=== PATIENT | female | born 1995 | race Caucasian/White ===

== ENCOUNTER 2024-12-31 13:58 | Emergency (ER) | payer SELFPAY ==
[2024-12-31 13:59] VITALS: BP 132/80; PULSE 79; RESP 16; TEMP 36.9; O2SAT 99
[2024-12-31 16:45] VITALS: BP 129/82; PULSE 77; RESP 15; O2SAT 100
--- NOTE | 2024-12-31 16:51 | ED_ITS ---
HPI - Anxiety General Chief Complaint: Anxiety <Luana LeeNory Melo, SENIOR SALES ASSISTANT - Last Filed: 12/31/24 16:54> Stated Complaint: anxiety <Luana LeeNory Melo SENIOR SALES ASSISTANT - Last Filed: 12/31/24 16:54> Time Seen by Provider: 12/31/24 16:40 <Luana Jason Melo SENIOR SALES ASSISTANT - Last Filed: 12/31/24 16:54> Focused HPI: Patient is a 29-year-old female who presents to the ER with complaints of lightheadedness, dizziness, and ?feeling off. She reports she was at work, ate lunch, and then her symptoms started. Patient reports she started feeling off last night but her symptoms worsened after lunch. She reports she has a history of POTS and her symptoms today feel similar to her previous episodes. Patient denies any recent fevers, urinary symptoms, shortness of breath. She denies any other medical history relevant to the ER visit. Patient reports she has been drinking plenty of water today. GENERAL: Well-appearing, well-nourished, and in no acute distress. HEAD: Normocephalic, atraumatic. CHEST: Clear to auscultation. ?No respiratory distress. HEART: Regular rate and rhythm.? NEURO: ?Alert and oriented x3. Patient screened in triage and initial orders placed.? ?Additional care and disposition to be based upon?diagnostic testing and treatment. <Luana LeeNory Melo, SENIOR SALES ASSISTANT - Last Filed: 12/31/24 16:54> Focused HPI: Patient is a 29-year-old female who presents to the ER with complaints of lightheadedness, dizziness, anxiety, tingling of the extremities and around the mouth. She reports she was at work, ate lunch, and then her symptoms started. Patient reports she started feeling off last night but her symptoms worsened after lunch. She reports she has a history of POTS and her symptoms today feel similar to her previous episodes. Patient denies any recent fevers, urinary symptoms, shortness of breath. She denies any other medical history relevant to the ER visit. Patient reports she has been drinking plenty of water today. GENERAL: Well-appearing, well-nourished, and in no acute distress. HEAD: Normocephalic, atraumatic. CHEST: Clear to auscultation. ?No respiratory distress. HEART: Regular rate and rhythm.? NEURO: ?Alert and oriented x3. Patient screened in triage and initial orders placed.? ?Additional care and disposition to be based upon?diagnostic testing and treatment. <Dali King PA-C - Last Filed: 12/31/24 19:32> Related Data Allergies/Adverse Reactions: Allergies Allergy/AdvReac Type Severity Reaction Status Date / Time Penicillins Allergy Swelling Verified 12/31/24 14:02 Sulfa (Sulfonamide Allergy Swelling Verified 12/31/24 14:02 Antibiotics) <Luana Melo APRN - Last Filed: 12/31/24 16:54> Review of Systems 2 Review of Systems: All systems reviewed & are unremarkable except as noted in HPI and below <Dali King PA-C - Last Filed: 12/31/24 19:32> PMFSH Past Medical History Medical History: Medical History (Updated 12/31/24 @ 19:29 by Dali King PA-C) History of anxiety <Luana Melo, TORI - Last Filed: 12/31/24 16:54> Exam 2 Narrative: GENERAL: Well-appearing, well-nourished, and in no acute distress. HEAD: Normocephalic, atraumatic. EYES: PERRLA and EOMI. ENT: Nares clear, no rhinorrhea or epistaxis. Mucous membranes moist. Oropharynx without tonsillar hypertrophy exudate or other lesions. Bilateral TMs pearly zheng non-bulging NECK: Supple. No adenopathy or masses. CHEST: Clear to auscultation. No respiratory distress. No wheezes rales or rhonchi HEART: Regular rate and rhythm. No murmur heard. Normal peripheral pulses. EXTREMITIES: Normal range of motion. No edema. SKIN: Warm, dry, no rash. NEURO: No focal deficits. Alert and oriented x3. Cranial nerves 2-12 grossly intact PSYCH: Normal mood and affect <Dali King PA-C - Last Filed: 12/31/24 19:32> Course Course Emergency Course: Patient reports feeling much better at this time. Ready for discharge < Dali King PA-C - Last Filed: 12/31/24 19:32> Vital Signs Vital signs: Vital Signs Temperature 98.4 F 12/31/24 13:59 Pulse Rate 79 12/31/24 13:59 Respiratory Rate 16 12/31/24 13:59 Blood Pressure 132/80 12/31/24 13:59 Pulse Oximetry 99 12/31/24 13:59 Temperature 98.4 F 12/31/24 13:59 Pulse Rate 77 12/31/24 16:45 Respiratory Rate 15 12/31/24 16:45 Blood Pressure 129/82 12/31/24 16:45 Pulse Oximetry 100 12/31/24 16:45 <Luana Melo, SENIOR SALES ASSISTANT - Last Filed: 12/31/24 16:54> Vital Signs Temperature 98.4 F 12/31/24 13:59 Pulse Rate 79 12/31/24 13:59 Respiratory Rate 16 12/31/24 13:59 Blood Pressure 132/80 12/31/24 13:59 Pulse Oximetry 99 12/31/24 13:59 Temperature 98.4 F 12/31/24 13:59 Pulse Rate 77 12/31/24 16:45 Respiratory Rate 15 12/31/24 16:45 Blood Pressure 129/82 12/31/24 16:45 Pulse Oximetry 100 12/31/24 16:45 <Dali King PA-C - Last Filed: 12/31/24 19:32> MDM - Anxiety MDM Narrative Medical decision making narrative: Patient presents emergency department for an episode of acute anxiety. Upon my evaluation she is feeling well. Symptoms resolved. Her vitals are stable. CBC and metabolic panel without concerning findings. TSH is normal. Urine without evidence of infection. Drug screen is negative. test is negative. Patient updated on her workup. Instructed to have further follow- up with her primary provider. She was given warnings to return to the ER <Dali King PA-C - Last Filed: 12/31/24 19:32> Differential Diagnosis Differential diagnosis: Likely hyperventilation, panic disorder and acute anxiety <Dali King PA-C - Last Filed: 12/31/24 19:32> Lab Data Attestation: I reviewed the patient's lab results. <Dali King PA-C - Last Filed: 12/31/24 19:32> Result diagrams: 07/22/25 16:53 12/31/24 16:53 <Luanacecelia Melo, SENIOR SALES ASSISTANT - Last Filed: 12/31/24 16:54> Labs: Lab Results 12/31/24 12/31/24 12/31/24 Range/Units 16:53 17:19 17:21 WBC 9.1 (4.5-10.0) K/mm3 RBC 4.44 (4.2-5.4) M/mm3 Hgb 12.9 (12.0-15.0) g/dL Hct 39.8 (37.0-47.0) % MCV 89.6 (80-100) fl MCH 29.1 (26-34) pg MCHC 32.4 (32-36) g/dl RDW 12.9 (11.5-14.5) % Plt Count 224 (150-375) k/mm3 MPV 10.1 (7.4-10.4) fl Immature Gran % (Auto) 0.2 (0-0.5) % Neut % (Auto) 62.4 (45.5-73.1) % Lymph % (Auto) 28.7 (18.3-44.2) % Putnam % (Auto) 7.5 (2.6-8.5) % Eos % (Auto) 0.6 (0-4.4) % Baso % (Auto) 0.6 (0.2-1.2) % Lymph # (Auto) 2.60 (0.9-3.2) K/mm3 Putnam # (Auto) 0.7 H (0.1-0.6) K/mm3 Eos # (Auto) 0.1 (0-0.3) K/mm3 Baso # (Auto) 0.1 (0.0-0.1) K/mm3 Abs Immat Gran (auto) 0.02 (0.00-0.031) K/mm3 Absolute Neuts (auto) 5.7 (1.3-6.7) K/mm3 Absolute Nucleated RBC 0.000 (0.0-0.012) K/mm3 Nucleated RBC % 0.0 (0.0-0.2) % Sodium 141 (137-145) mmol/L Potassium 3.9 (3.4-5.0) mmol/L Chloride 107 (98-107) mmol/L Carbon Dioxide 23 (22-30) mmol/L Anion Gap 11 (4-12) mmol/L BUN 9 (7-17) mg/dL Creatinine 0.82 (0.7-1.0) mg/dL Estim Creat Clear Calc 72 ml/min Estimated GFR > 60 (59 - ) Glucose 97 (65-110) mg/dL Calcium 8.8 (8.4-10.2) mg/dL Total Bilirubin 0.4 (0.2-1.3) mg/dL AST 21 (14-36) U/L ALT 13 (6-35) U/L Alkaline Phosphatase 49 (38-126) U/L Total Protein 7.5 (6.3-8.2) g/dL Albumin 4.4 (3.5-5.1) g/dL TSH (Reflex) 0.594 (0.465-4.68) uIU/mL Urine Color Yellow (Yellow) Urine Appearance Turbid H (Clear) Urine pH 8.5 (5.0-9.0) Ur Specific Badin 1.016 (1.001-1.035) Urine Protein Negative (Negative) mg/dL Urine Glucose (UA) Negative (Negative) mg/dL Urine Ketones Negative (Negative) mg/dL Ur Blood (Man) Negative (Negative) Urine Nitrate Negative (Negative) Urine Bilirubin Negative (Negative) Urine Urobilinogen 1.0 (<2.0) mg/dL Leukocyte Esterase Rfl Negative (Negative) REBECCA/UL Urine RBC 3-5 H (0-2) /hpf Urine WBC 0-5 (0-3) /hpf Ur Squamous Epith Cells None seen (Few) /hpf Urine Bacteria None seen /hpf Urine Casts 0-2 POC Urine HCG, Qual Negative (Negative) Urine Opiates Screen Negative (Negative) Urine Methadone Screen Negative (Negative) Ur Barbiturates Screen Negative (Negative) Ur Phencyclidine Scrn Negative (Negative) Ur Amphetamine Screen Negative (Negative) U Benzodiazepines Scrn Negative (Negative) Urine Cocaine Screen Negative (Negative) U Cannabinoids Screen Negative (Negative) Ethyl Alcohol < 10 (<10) mg/dL <Luana Melo, SENIOR SALES ASSISTANT - Last Filed: 12/31/24 16:54> Lab Results 07/22/25 07/22/25 07/22/25 Range/Units 16:53 17:19 17:21 WBC 9.1 (4.5-10.0) K/mm3 RBC 4.44 (4.2-5.4) M/mm3 Hgb 12.9 (12.0-15.0) g/dL Hct 39.8 (37.0-47.0) % MCV 89.6 (80-100) fl MCH 29.1 (26-34) pg MCHC 32.4 (32-36) g/dl RDW 12.9 (11.5-14.5) % Plt Count 224 (150-375) k/mm3 MPV 10.1 (7.4-10.4) fl Immature Gran % (Auto) 0.2 (0-0.5) % Neut % (Auto) 62.4 (45.5-73.1) % Lymph % (Auto) 28.7 (18.3-44.2) % Putnam % (Auto) 7.5 (2.6-8.5) % Eos % (Auto) 0.6 (0-4.4) % Baso % (Auto) 0.6 (0.2-1.2) % Lymph # (Auto) 2.60 (0.9-3.2) K/mm3 Putnam # (Auto) 0.7 H (0.1-0.6) K/mm3 Eos # (Auto) 0.1 (0-0.3) K/mm3 Baso # (Auto) 0.1 (0.0-0.1) K/mm3 Abs Immat Gran (auto) 0.02 (0.00-0.031) K/mm3 Absolute Neuts (auto) 5.7 (1.3-6.7) K/mm3 Absolute Nucleated RBC 0.000 (0.0-0.012) K/mm3 Nucleated RBC % 0.0 (0.0-0.2) % Sodium 141 (137-145) mmol/L Potassium 3.9 (3.4-5.0) mmol/L Chloride 107 (98-107) mmol/L Carbon Dioxide 23 (22-30) mmol/L Anion Gap 11 (4-12) mmol/L BUN 9 (7-17) mg/dL Creatinine 0.82 (0.7-1.0) mg/dL Estim Creat Clear Calc 72 ml/min Estimated GFR > 60 (59 - ) Glucose 97 (65-110) mg/dL Calcium 8.8 (8.4-10.2) mg/dL Total Bilirubin 0.4 (0.2-1.3) mg/dL AST 21 (14-36) U/L ALT 13 (6-35) U/L Alkaline Phosphatase 49 (38-126) U/L Total Protein 7.5 (6.3-8.2) g/dL Albumin 4.4 (3.5-5.1) g/dL TSH (Reflex) 0.594 (0.465-4.68) uIU/mL Urine Color Yellow (Yellow) Urine Appearance Turbid H (Clear) Urine pH 8.5 (5.0-9.0) Ur Specific Badin 1.016 (1.001-1.035) Urine Protein Negative (Negative) mg/dL Urine Glucose (UA) Negative (Negative) mg/dL Urine Ketones Negative (Negative) mg/dL Ur Blood (Man) Negative (Negative) Urine Nitrate Negative (Negative) Urine Bilirubin Negative (Negative) Urine Urobilinogen 1.0 (<2.0) mg/dL Leukocyte Esterase Rfl Negative (Negative) REBECCA/UL Urine RBC 3-5 H (0-2) /hpf Urine WBC 0-5 (0-3) /hpf Ur Squamous Epith Cells None seen (Few) /hpf Urine Bacteria None seen /hpf Urine Casts 0-2 POC Urine HCG, Qual Negative (Negative) Urine Opiates Screen Negative (Negative) Urine Methadone Screen Negative (Negative) Ur Barbiturates Screen Negative (Negative) Ur Phencyclidine Scrn Negative (Negative) Ur Amphetamine Screen Negative (Negative) U Benzodiazepines Scrn Negative (Negative) Urine Cocaine Screen Negative (Negative) U Cannabinoids Screen Negative (Negative) Ethyl Alcohol < 10 (<10) mg/dL <Dali King PA-C - Last Filed: 12/31/24 19:32> Critical Care Time Critical Care Time Critical Care Time: No <Dali King PA-C - Last Filed: 12/31/24 19:32> Discharge Plan Discharge Clinical Impression: Acute anxiety <Luana Melo APRN - Last Filed: 12/31/24 16:54> Patient Disposition: Home <Luana Melo APRN - Last Filed: 12/31/24 16:54> Condition: Improved <Luana Melo APRN - Last Filed: 12/31/24 16:54> Instructions: Anxiety (ED) <Luana Melo APRN - Last Filed: 12/31/24 16:54> Additional Instructions: Return to the emergency department if you experience fever, chest pain, shortness of breath, abdominal pain with nausea and vomiting, you pass out, or any other symptoms that are concerning to you. Follow up with your primary care doctor <Luana Melo APRN - Last Filed: 12/31/24 16:54> Patient Language: Wolof <Luana Melo APRN - Last Filed: 12/31/24 16:54> Follow-up/Referrals: PHYSICIAN,HEALTHCARE SOCIAL WORKER [Non-Staff] - <Luana Melo APRN - Last Filed: 12/31/24 16:54>
[2024-12-31 16:59] LABS: Hematocrit 39.8 % (37.0-47.0); Hemoglobin 12.9 g/dL (12.0-15.0); Immature Granulocyte Percent A 0.2 % (0-0.5); Lymphocytes Absolute Auto 2.60 K/mm3 (0.9-3.2); Mean Corpuscular HGB Conc 32.4 g/dl (32-36); Mean Corpuscular Hemoglobin 29.1 pg (26-34); Mean Corpuscular Volume 89.6 fl (80-100); Nucleated Red Blood Cells Absolute Auto 0.000 K/mm3 (0.0-0.012); Nucleated Red Blood Cells Perc 0.0 % (0.0-0.2); Platelet Count Result 224 k/mm3 (150-375); Red Blood Count 4.44 M/mm3 (4.2-5.4); White Blood Count 9.1 K/mm3 (4.5-10.0)
[2024-12-31 17:17] LABS: Alanine Aminotransferase 13 U/L (6-35); Albumin Level 4.4 g/dL (3.5-5.1); Alkaline Phosphatase 49 U/L (38-126); Anion Gap 11 mmol/L (4-12); Aspartate Amino Transferase 21 U/L (14-36); Bilirubin,Total 0.4 mg/dL (0.2-1.3); Blood Urea Nitrogen 9 mg/dL (7-17); Calcium 8.8 mg/dL (8.4-10.2); Carbon Dioxide 23 mmol/L (22-30); Chloride 107 mmol/L (98-107); Estimated CRCL calculation 72 ml/min; Estimated Glomerular Filt Rate > 60; Glucose 97 mg/dL (65-110); Potassium 3.9 mmol/L (3.4-5.0); Sodium 141 mmol/L (137-145); Total Protein 7.5 g/dL (6.3-8.2)
[2024-12-31 17:22] LABS: BEDSIDEPREGUCG Negative (Negative)
[2024-12-31 17:39] LABS: Add Urine Microscopic? YES; Appearance Urine Turbid (Clear); Glucose Urine UA Negative (Negative); Leukocyte Esterase Ur Negative LEU/UL (Negative); Nitrate Urine Negative (Negative); Non Pathogenic Casts 0-2; Specific Grav Ur 1.016 (1.001-1.035)
[2024-12-31 17:48] LABS: Thyroid Stimulating Hormone Reflex 0.594 uIU/mL (0.465-4.68)
[2024-12-31 18:11] LABS: Cannabinoid Screen Urine Negative (Negative)
--- OUTSIDE RECORDS SUMMARY | 2024-12-31 19:16 | XMS_ITS | Encounter Summary ---
Author Organization [facility] Healthcare Address [address] [place] [address] Care Team Providers Care Box Press Operator Name Role Phone Kingsley Power MD Primary Care Provider [phone] Aubree June [phone] Encounter Details Date Type Department Care Team (Late st Contact Info) Description 12/19/2022 Telephone [facility] [address] [place] [address] Joya Lakhani, VANIA Social History Tobacco Use Types Packs/Day Years Used Date Smoking Tobacco: Never Smokeless Tobacco: Never Alcohol Use Standard Drinks/Week Comments Yes 0 (1 standard drink = 0.6 oz pur e alcohol) socially AUDIT-C Answer Date Recorded Q1: How often do you have a drink containing alc ohol? Never 08/12/2021 Average Number of Drinks Not on file 022 Q3: How often do you have si x or more drinks on one occasion? Never 08/12/2021 PHQ-2 Answer Date Recorded PHQ-2 Total Score (If total score is 3 or more points, staff should administer the PHQ-9) 0 11/08/2022 Personal Safety Answer Date Recorded Have you ever been in or are you currently in a harmful physical or emotional relationship or is someone making you feel afraid or unsafe? Denies 10/08/2022 Comments No Sex and Gender Information Value Date Recorded Sex Assigned at Not on file Legal Sex Female 3:52 AM PIPELINE DISPATCH OPERATOR Gender Identity Female 03/19/2024 10:38 AM CDT Sexual Orientation Straight 12/22/2020 7: 52 AM CDT documented as of this encounter Plan of Treatment Not on file documented as of this encounter Visit Diagnoses Not on filedocumented in this encounter Additional Health Concerns Infection Onset Date Last Indicated Resolved Time COVID: Suspected 02/21/2023 02/21/2023 02/21/2023 8:54 AM CDT COVID: Suspected 02/21/2023 02/21/2023 02/21/2023 3:07 PM CDT COVID: Suspected 04/09/2023 04/09/2023 04/09/2023 3:27 PM CDT COVID: Suspected 07/07/2023 07/07/2023 07/07/2023 2:49 PM PIPELINE DISPATCH OPERATOR COVID: Suspected 07/10/2023 07/10/2023 07/10/2023 2:43 PM PIPELINE DISPATCH OPERATOR COVID: Suspected 06/07/2024 06/07/2024 06/07/2024 10:03 AM PIPELINE DISPATCH OPERATOR COVID: Suspected 07/31/2024 07/31/2024 08/01/2024 3:05 AM PIPELINE DISPATCH OPERATOR documented as of this encounter Care Teams Box Press Operator Relationship Specialty Start Date End Date Kingsley Power MD [address] [place] [address] PCP - General Family Medicine 09/02/20 Aubree June PA [address] [place] [address] [place] [address] Orthopedic Surgery 11/02/23 documented as of this encounter
--- OUTSIDE RECORDS SUMMARY | 2024-12-31 19:16 | XMS_ITS | Referral Summary ---
Author Organization [facility] B Address [address] [place] [address] Care Team Providers Care Contact Finger Assembler Name Role Phone Kingsley Power MD Primary Care Provider [phone] Aubree June [phone] Encounters Date Type Department Care Team Description 11/12/2024 Results Follow-Up [facility] at [address] [address] Kingsley Power MD Hepatitis C antibody Blood, Comprehensive metabolic panel, CBC with auto differential, Additional followed-up results: 3 11/11/2024 9:10 AM CDT Lab [facility] [address] [place] [address] Encounter for hepatitis C screening test for low risk patient; Annual physical exam 11/08/2024 Telephone [facility] [address] [address] Kingsley Power MD Labs 10/30/2024 4:30 PM CDT Office Visit [facility] at [address] [place] [address] Ammy Del Castillo, TOMÁS Insect bite of neck with local reaction, initial encounter (Primary Dx) from Last 3 Months Allergies Active Allergy Reactions Criticality Noted Date Comments Adhesive Blisters,Redness High 12/27/2022 Irriatated skin Amoxicillin Hives,Swelling High Guaifenesin Vomiting Low 09/06/2024 Penicillins Hives,Swelling High 04/10/2016 Oxycodone-Acetaminophen Dizziness,Nausea & Vomiting Low 11/07/2023 Sulfa (Sulfonamide Antibiotics) Rash Medium 06/07/2018 [id number] Antimigraine Agents Dizziness High 03/15/2023 Made her POTS worse Medications propranoloL (INDERAL) 20 mg tablet Take 1 tablet (20 mg total) by mouth 2 (two) times a day 180 tablet 4 07/11/19 25 026 Active ondansetron ODT (ZOFRAN-ODT) 4 mg disintegrating tabletIndications: Nausea Take 1 tablet (4 mg total) by mouth every 6 (six) hours as needed for nausea or vomiting 10 tablet 08/06/19 Active Additional Information Patient not taking.Reported on 10/30/2024 benzonatate (TESSALON) 100 mg capsuleIndications :Cough Take 1 capsule (100 mg total) by mouth 3 (three) times a day as needed for cough 42 capsule 09/07/19 Active Additional Information Patient not taking.Reported on 10/30/2024 ubrogepant (Ubrelvy) 50 mg tablet Take 1 tablet (50 mg total) by mouth once as needed for migraine May repeat dose once in 2 hours if no relief. Do not exceed 2 doses in 24 hours. 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 We did discuss in detail the available forms of control. She is going to continue with her Nexplanon, it is due for removal in August of 2024. She was given an informational handout on the Kyleena IUD. If she wishes to have this inserted, she will contact us so we can get the device ordered prior to expiration of her Nexplanon. Questions were answered in detail. Left lower quadrant abdominal pain 09/08/2023 Assessment & Plan (09/08/2023 11:09 AM CDT): Was evaluated in the ER on 09/04/[address] of the abdomen and pelvis was negative. Urine culture was negative. Discussed use of Tylenol or ibuprofen, heat to abdomen p.r.n., follow-up if symptoms are not resolving Vertigo 09/08/2023 Assessment & Plan (09/08/2023 11:11 AM CDT): Discussed vertigo. Stay well hydrated. Change position slowly. Can take meclizine up to t.i.d. p.r.n.. Acute pain of right shoulder 03/15/2023 Assessment & Plan (09/08/2023 11:10 AM CDT): Keep appointment to see Dr. Barksdale on 09/15/2023. Assessment & Plan (03/15/2023 11:40 AM CDT): Patient states the right shoulder pain has been present since October She is tried a Medrol Dosepak with no improvement X-ray ordered and referral to physical therapy placed Migraine without aura and wi th status migrainosus, not intractable 01/13/2023 Assessment & Plan (07/11/2024 4:30 PM [employer] MECHANIC): Stable, generally well controlled, gets 123 migraines per week Good relief with current medications, rare use of 100 mg dose Will start propranolol 20 mg b.i.d. to help reduce frequency of migraines; continue Ubrelvy 50 mg p.r.n. for migraine Assessment & Plan (11/09/2023 12:59 PM CDT): Patient reports symptoms have improving for patient's; fewer headaches Continue Ubrelvy 50 mg p.r.n. for severe migraine Assessment & Plan (09/08/2023 11:08 AM CDT): Most recent migraine on 09/05/2023 has fully resolved. Continue Ubrelvy p.r.n. Assessment & Plan (03/15/2023 11:40 AM CDT): Not well-controlled, patient states the sumatriptan made her POTS worse Stop Sumatriptan Start Ubrelvy 50 mg p.r.n. migraine Assessment & Plan (01/13/2023 10:54 AM CDT): Not well controlled, patient gets migraines associated with episodes of POTS; most recently had headache for approximately 3 days Will start sumatriptan p.r.n. for headache Lipomatosis 05/24/2022 Assessment & Plan (05/24/2022 3:00 PM [employer] MECHANIC): Patient reported 3 lipomas removed in the past year; will continue to monitor for recurrence or further lipomas that bother patient required removal Need for immunization against influenza 05/04/20 21 POTS (postural orthostatic tachycardia syndrome) 02/09/2021 Assessment & Plan (07/11/2024 4:29 PM [employer] MECHANIC): Stable, generally well controlled, has 1-2 episodes per month; symptoms last for 1-2 days; may have to leave work Has episodes of syncope, as well as loss of muscle tone Will start propranolol 20 mg b.i.d. Will for work accommodation Assessment & Plan (11/09/2023 12:58 PM CDT): Stable, generally well controlled; no major issues at this time Patient reports cutting down on caffeine which is helping her feel better Assessment & Plan (01/13/2023 10:54 AM CDT): Patient has been having worsening in more frequent symptoms; symptoms started due to hot weather, and change in work environment, allowing patient less time to sit as well as less time for fluid intake Will right up-to-date instructions for work environment to allow patient easy access to fluids for symptom management Encourage adjuvant treatment through using compression hose to decrease venous pooling Symptoms continue, will consider medical therapies Assessment & Plan (11/08/2022 11:42 AM CDT): Generally well controlled, continues to have occasional episodes of orthostatics in syncope Continue to encourage appropriate fluid and sodium intake Assessment & Plan (05/24/2022 2:59 PM [employer] MECHANIC): Generally doing well, occurs about 12 times per month, and has to miss work during this episodes No further episodes of complete syncope Continue to monitor and encourage patient to recognize symptoms in order to recheck self from syncope or falls Assessment & Plan (09/02/2021 4:39 PM CDT): Stable, generally well controlled; patient has started getting 1 g salt tablets, not sure how many to take Discussed with patient to target is to 12 g of total sodium per day; including through diet as well as supplements Would recommend starting with around 3-4 tablets per day, knees based during day, evaluate dietary intake of sodium Assessment & Plan (02/23/2021 12:53 PM CDT): Completed tilt-table testing, evaluation positive for vasovagal versus POTS This time no medications Patient continues to have symptoms, at work with frequently shifting positions as well as changing from hot to cold violence; as well as at home worse 1st thing in the morning waking up and getting out of bed Counseled patient getting out of bed slowly, transitioning to sitting for approximately 1-2 minutes before standing Continue with high fluids and high sodium intake At this time no medication is necessary Continue follow-up with cardiology Assessment & Plan (02/09/2021 3:29 PM CDT): Has been evaluated by Cardiology, follow-up for evaluation for POTS syndrome Patient continues to have episodes of syncope and presyncope Symptoms occur and multiple situations such as when transitioning from hot to cold or walking out in conditions Occurs 1-2 times per week occurs in both indication and will concerns Having continued and new symptoms such as loss of function in bilateral hands Will continue to monitor, get routine labs Scoliosis 03/26/2010 Immunizations Immunization Administration Dates Next Due DTP 08/21/1995,04/27/1995,02/15/1995 DTP / HiB 12/28/1995, 6,04/27/1995,02/15 DTaP 01/13/2000 Hep B, Adolescent or Pediatric 6,02/25/1995,02/15/1995,01/12 IPV 01/13/2000 Influenza, Quadrivalent, Spl it, Intramuscular 03/15/2018 Influenza, Quadrivalent, Spl it, Preservative Free, Intramuscular 03/15/2023,05/04/2021,09/02/2020 Influenza, Trivalent, Preser vative Free, Intramuscular 03/21/2024 Influenza, Unspecified 03/12/2022,2020(Deferred: Patient Refused),02/23/2021(Deferred: Patient Refused),06/12/2020(Deferred: Patient Refused),06/12/2020(Deferred: Patient Refused),03/12/2019 MMR 01/13/2000,12/28/1995 OPV 12/28/1995, 6,04/27/1995,02/15 Td, adsorbed 12/28/1995 Tdap 09/02/2020 Social History Tobacco Use Types Packs/Day Years Used Date Smoking Tobacco: Never Smokeless Tobacco: Never Tobacco Cessation:Counseling Given: Not Answered Alcohol Use Standard Drinks/Week Comments Yes 0 (1 standard drink = 0.6 oz pur e alcohol) socially AUDIT-C Answer Date Recorded Frequency of Alcohol Consumption Not on file 10/26/2023 Q2: How many drinks containi ng alcohol do you have on a typical day when you are drinking? Patient does not drink Q3: How often do you have si x or more drinks on one occasion? Never 10/26/2023 PHQ-2 Answer Date Recorded PHQ-2 Total Score (If total score is 3 or more points, staff should administer the PHQ-9) 0 09/19/2023 Personal Safety Answer Date Recorded Have you ever been in or are you currently in a harmful physical or emotional relationship or is someone making you feel afraid or unsafe? Denies 11/06/2023 Comments No Sex and Gender Information Value Date Recorded Sex Assigned at Not on file Legal Sex Female 3:52 AM ELECT[employer]IC [employer] MECHANIC Gender Identity Female 03/19/2024 10:38 AM CDT Sexual Orientation Straight 12/22/2020 7: 52 AM CDT Last Filed Vital Signs Vital Sign Reading Time Taken Comments Blood Pressure 120/68 10/30/2024 4:28 PM CDT Pulse 80 10/30/2024 4:28 PM CDT Temperature 36.7 C (98.1 F) 10/30/2024 4:28 PM CDT Respiratory Rate 18 10/30/2024 4:28 PM CDT Oxygen Saturation 99% 10/30/2024 4:28 PM CDT Inhaled Oxygen Concentration - - Weight 56.7 kg (125 lb) 10/30/2024 4:28 PM CDT Height 160 cm (5' 3) 10/30/2024 4:28 PM CDT Body Mass Index 22.14 10/30/2024 4:28 PM CDT Plan of Treatment Not on file Medical Devices Implanted Type Area Endocrinology Teacher Device Identifier Shelf Expiration Date Model / Serial / Lot Bard Peripheral Vascular Ultraclip Bard 17ga 10cm 2 Trigger Permanent Ultrasound [id number] - [id number] - [id number] Implanted:Qty: 1 on 12/27/2022 by Indio Neff MD at [facility] Breast Bard Peripheral Vascular 04/08/2025 [id number] / [id number] / [id number] Description:Implanted Right Breast 12:00 area 3 cmfn [employer] System Biceps [place] Slotted Drill Guide 1.9mm Drill Fibertak [id number] - [id number] Implanted:Qty: 1 on 11/02/2023 by Noel Barksdale MD at [facility] Right: Shoulder [employer] 09/09/2028 AR-3670 / / [id number] Procedures Procedure Name Priority Date/Time Associated Diagnosis Comments EGFR Routine 11/11/2024 8:11 AM CDT Annual physical exam DIFFERENTIAL AUTO Routine 11/11/2024 8:1 1 AM CDT Annual physical exam LIPID PANEL Routine 11/11/2024 8:11 AM CDT Annual physical exam CBC WITH AUTO DIFFERENTIAL Routine 11/11/2024 8:11 AM CDT Annual physical exam COMPREHENSIVE METABOLIC PANEL Routine 11/11/2024 8:11 AM CDT Annual physical exam HEPATITIS C ANTIBODY Routine 11/11/2024 8:11 AM CDT Encounter for hepatitis C screening test for low risk patient PAP, REFLEX HPV Routine 09/19/2023 11:00 AM CDT Well woman exam from Last 3 Months or Most Recently Relevant to Health Maintenance Results * eGFR (11/11/2024 8:11 AM CDT) eGFR >90 >=60 mL/min/1. 73 m2 Comment: Interpretive Data Reference Interval Normal >/= 90 mL/min/1.73m2 Mildly decreased* 60 - 89 mL/min/1.73m2 Mildly to moderately decreased 45 - 59 mL/min/1.73m2 Moderately to severely decreased 30 - 44 mL/min/1.73m2 Severely decreased 15 - 29 mL/min/1.73m2 Kidney Failure < 15 mL/min/1.73m2 *Relative to young adult level Estimated glomerular filtration rate is determined by the 2020 CKD-EPI equation recommended by the National Kidney Foundation (A Unifying Approach to GFR Estimation: Recommendations of the NKF-ASK Task Force on Reassessing the Inclusion of Race in Diagnosing Kidney Disease, JASN 2020). The CKD-EPI equation should not be used for patients with unstable renal function and has not been validated in children and those over 70. Current interpretive data was last reviewed 2021. Testing performed by: [facility], [address] [place] [address]., [id number] Blood 11/11/2024 8:11 AM CDT 11/11/2024 5:04 PM CDT us Kingsley Power MD LAB BLOOD ORDERABLES Angélica saunders Result [facility] ([place]) [facility] Department [place] [address] * Differential, auto (11/11/2024 8:11 AM CDT) Neutrophil abs 3.75 1.50 - 6.50 K/cumm Comment:Testing performed by : [address] [address] Imm gran abs 0.01 0.00 - 0.10 K/cumm [facility] ([place]) Comment:Testing performed by : [facility], [address] [place] [address]., [address] Lymphocyte abs 1.89 0.80 - 3.30 K/cumm [facility] ([place]) Comment:Testing performed by : [address] [address] Monocyte abs 0.48 0.20 - 0.80 K/cumm [facility] ([place]) Comment:Testing performed by : [address] [address] Eosinophil abs 0.05 0.00 - 0.50 K/cumm [facility] ([place]) Comment:Testing performed by : [address], [address] Basophil abs 0.03 0.00 - 0.10 K/cumm [facility] ([place]) Comment:Testing performed by : [address], [address] Neutrophil pct 60.4 % [facility] ([place]) Comment: Interpretive Data Percent cell count reference ranges are not reported, since discordance with absolute values may lead to misinterpretation of CBC data. Current Interpretive Data was last revised on 2017. Testing performed by: [facility], [address] [place] [address]., [address] Imm gran pct 0.2 % [facility] ([place]) Comment: Interpretive Data Percent cell count reference ranges are not reported, since discordance with absolute values may lead to misinterpretation of CBC data. Current Interpretive Data was last revised on 2017. Testing performed by: [facility], [address] [place] [address]., [address] Lymphocyte pct 30.4 % [facility] ([place]) Comment: Interpretive Data Percent cell count reference ranges are not reported, since discordance with absolute values may lead to misinterpretation of CBC data. Current Interpretive Data was last revised on 2017. Testing performed by: [facility], [address] [place] [address]., [address] Monocyte pct 7.7 % [facility] ([place]) Comment: Interpretive Data Percent cell count reference ranges are not reported, since discordance with absolute values may lead to misinterpretation of CBC data. Current Interpretive Data was last revised on 2017. Testing performed by: [facility], [address] [place] [address]., [address] Eosinophil pct 0.8 % [facility] ([place]) Comment: Interpretive Data Percent cell count reference ranges are not reported, since discordance with absolute values may lead to misinterpretation of CBC data. Current Interpretive Data was last revised on 2017. Testing performed by: [facility], [address] [place] [address]., [address] Basophil pct 0.5 % [facility] ([place]) Comment: Interpretive Data Percent cell count reference ranges are not reported, since discordance with absolute values may lead to misinterpretation of CBC data. Current Interpretive Data was last revised on 2017. Testing performed by: [address] [address] Blood 11/11/2024 8:11 AM CDT 11/11/2024 4:51 PM CDT us Kingsley Power MD LAB BLOOD ORDERABLES Angélica saunders Result [facility] ([place]) [address] Department [place] [address] * (ABNORMAL) CBC with auto differential (11/11/2024 8:11 AM CDT) [facility] WBC 6.21 3.80 - 9.90 K/cumm Comment:Testing performed by : [address], [address] Hgb 12.6 11.9 - 15.5 g/dL [facility] ([place]) Comment:Testing performed by : [facility], [address] [place] [address], [address] Hct 39.5 35.6 - 45.5 % [facility] ([place]) Comment:Testing performed by : [address], [address] Plt 187 150 - 400 K/cumm [facility] ([place]) Comment:Testing performed by : [address], [address] MPV 12.2 9.1 - 12.3 fL [facility] ([place]) Comment:Testing performed by : [address], [address] RBC 4.31 3.90 - 5.20 M/cumm [facility] ([place]) Comment:Testing performed by : [address], [address] MCV 91.6 81.3 - 96.4 fL [facility] ([place]) Comment:Testing performed by : [address], [address] MCH 29.2 27.1 - 33.3 pg [facility] ([place]) Comment:Testing performed by : [address], [address] MCHC 31.9(L) 32.3 - 35.7 g/dL [facility] ([place]) Comment:Testing performed by : [address], [address] RDW CV 13.0 11.1 - 14.9 % [facility] ([place]) Comment:Testing performed by : [address], [address] RDW SD 44.2 35.7 - 48.1 fL [facility] ([place]) Comment:Testing performed by : [facility], [address] [place] [address]., [address] NRBC abs 0.00 0.00 - 0.01 K/cumm [facility] ([place]) Comment:Testing performed by : [facility], [address] [place] [address]., [address] Blood 11/11/2024 8:11 AM CDT 11/11/2024 4:51 PM CDT Kingsley Power MD LAB BLOOD ORDERABLES Angélica l Result Performing Organization Address City/[facility]/ZIP Co de Phone Number [facility] ([place]) [facility] [employer] [place] [address] * Hepatitis C antibody Blood (11/11/2024 8:11 AM CDT) Hep C Ab Nonreactive Nonreactive Comment: Interpretive Data Nonreactive: Antibodies to HCV not detected. Does NOT exclude the possibility of recent exposure to HCV. Equivocal: Equivocal for HCV antibodies. Supplemental molecular testing will be automatically performed to determine infection status in accordance with current CDC screening recommendations. Reactive: Positive for HCV antibodies. This may represent current or past HCV infection. Supplemental molecular testing will be automatically performed to determine current infection status in accordance with current CDC screening recommendations. Interpretive data was last revised on 2019. Testing performed by: [facility], [address] [place] [address]., [address] Blood 11/11/2024 8:11 AM CDT 11/11/2024 4:51 PM CDT Kingsley Power MD LAB MICROBIOLOGY - GENERA L ORDERABLES Final Result Performing Organization Address City/[facility]/ZIP Co de Phone Number [facility] ([place]) [facility] [employer] [place] [address] * Lipid panel (11/11/2024 8:11 AM CDT) Cholesterol 149 30 - 199 mg/dL Comment: Interpretive Data Ages < or = 19 years Acceptable: <170 mg/dL Borderline high: 170-199 mg/dL High: >or= 200 mg/dL Ages > or = 20 years Desirable: <200 mg/dL Borderline high: 200-239 mg/dL High: >or= 240 mg/dL Literature References: 1. Expert Panel on Integrated Guidelines for Cardiovascular Health and Risk Reduction in Children and Adolescents. Pediatrics 2011;128:S213 2. NCEP Expert Panel. Circulation 2004;110:227 Current Interpretive Data was last revised on 2018. Testing performed by: [facility], [address] [place] [address]., [address] Triglycerides 51 <=149 mg/dL [facility] ([place]) Comment: Interpretive Data Ages < or = 9 years Acceptable: <75 mg/dL Borderline high: 75-99 mg/dL High: >or= 100 mg/dL Ages 10 to 20 years Acceptable: <90 mg/dL Borderline high: 90-129 mg/dL High: >or= 130 mg/dL Ages > or = 20 years Desirable: <150 mg/dL Borderline high: 150-199 mg/dL High: 200-499 mg/dL Very high: >or= 499 mg/dL Literature References: 1. Expert Panel on Integrated Guidelines for Cardiovascular Health and Risk Reduction in Children and Adolescents. Pediatrics 2011;128:S213 2. NCEP Expert Panel. Circulation 2004;110:227 Current Interpretive Data was last revised on 2018. Testing performed by: [facility], [address] [place] [address]., [address] HDL 45 >=40 mg/dL [facility] ([place]) Comment: Interpretive Data Ages < or = 19 years Acceptable: >45 mg/dL Borderline low: 40-45 mg/dL Low: <40 mg/dL Ages > or = 20 years Desirable: >or= 60 mg/dL Low: <40 mg/dL Literature References: 1. Expert Panel on Integrated Guidelines for Cardiovascular Health and Risk Reduction in Children and Adolescents. Pediatrics 2011;128:S213 2. NCEP Expert Panel. Circulation 2004;110:227 Current Interpretive Data was last revised on 2018. Testing performed by: [facility], [address] [place] [address]., [address] LDL, calculated 93 <=129 mg/dL [facility] ([place]) Comment: Interpretive Data Ages < or = 19 years Acceptable: <110 mg/dL Borderline high: 110-129 mg/dL High: >or= 130 mg/dL Ages > or = 20 years Optimal: <100 mg/dL Near optimal: 100-129 mg/dL Borderline high: 130-159 mg/dL High: >160 mg/dL Calculated using the Pilo LDL-C estimating equation. This equation was implemented on 2024. Prior to this date LDL-C was estimated using the Friedewald equation. Literature References: 1. Expert Panel on Integrated Guidelines for Cardiovascular Health and Risk Reduction in Children and Adolescents. Pediatrics 2011;128:S213 2. NCEP Expert Panel. Circulation 2004;110:227 3. Pilo Diaz et al. LOBO Cardiol. 2020 October 10;5(5):540-548. doi: 10.1001/jamacardio.2020.0013 Current Interpretive Data was last revised on 2024. Testing performed by: [address] [address] Non-HDL Cholesterol 104 mg/dL [facility]) Comment: Interpretive Data Ages < or = 19 years Acceptable: <120 mg/dL Borderline high: 120-144 mg/dL High: >145 mg/dL Ages > or = 20 years When triglycerides are >200 mg/dL, Non-HDL cholesterol is a secondary target of therapy with treatment goals that are 30 mg/dL greater than the LDL cholesterol target. Literature References: 1. Expert Panel on Integrated Guidelines for Cardiovascular Health and Risk Reduction in Children and Adolescents. Pediatrics 2011;128:S213 2. NCEP Expert Panel. Circulation 2004;110:227 Current Interpretive Data was last revised on 2018. Testing performed by: [address] [address] Chol/HDL ratio 3 [facility]) Comment:Testing performed by : [address] [address] Blood 11/11/2024 8:11 AM CDT 11/11/2024 4:51 PM CDT Kingsley Power MD LAB BLOOD ORDERABLES Angélica saunders Result [facility] ([place]) [facility] Department [place] [address] * Comprehensive metabolic panel (11/11/2024 8:11 AM CDT) Sodium 142 135 - 145 mmol/L Comment:Testing performed by : [facility], [address] [place] [address]., [address] Potassium, pl 4.2 3.3 - 4.9 mmol/L [facility] ([place]) Comment:Testing performed by : [facility], [address] [place] [address]., [address] Chloride 109 97 - 110 mmol/L [facility] ([place]) Comment:Testing performed by : [address] [address] CO2 24 22 - 32 mmol/L [facility] ([place]) Comment:Testing performed by : [address] [address] Anion gap 9 2 - 15 mmol/L [facility] ([place]) Comment:Testing performed by : [address] [address] BUN 8 6 - 25 mg/dL [facility] ([place]) Comment:Testing performed by : [address] [address] Creatinine 0.72 0.60 - 1.10 mg/dL [facility] Comment:Testing performed by : [address] [address] Glucose 88 70 - 199 mg/dL [facility] Comment: Interpretive Data Fasting glucose >/= 126 mg/dl is diagnostic for diabetes. Fasting is defined as no caloric intake for at least 8 hours. Fasting glucose between 100 mg/dl to 125 mg/dl is diagnostic of prediabetes. In a patient with classic symptoms of hyperglycemia or hyperglycemic crisis, a random glucose >/= 200 mg/dl is diagnostic for diabetes. In the absence of unequivocal hyperglycemia, results should be confirmed by repeat testing. The classification and Diagnosis of Diabetes Diabetes Care 2021; 46: S19-S40. Current interpretive data was last revised 2022. Testing performed by: [address] [place]., [address] Calcium 8.9 8.5 - 10.3 mg/dL [facility]) Comment:Testing performed by : [facility], [address] [place] [address], [address] Bilirubin, total 0.4 0.1 - 1.2 mg/dL [facility] ([place]) Comment:Testing performed by : [address], [address] Protein, pl 6.7 6.5 - 8.5 g/dL [facility] ([place]) Comment:Testing performed by : [facility], [address] [place] [address], [address] Albumin 4.1 3.5 - 5.0 g/dL [facility] ([place]) Comment:Testing performed by : [facility], [address] [place] [address], [address] Alk phos 50 40 - 130 Units/L [facility] ([place]) Comment:Testing performed by : [address], [address] ALT 13 7 - 45 Units/L [facility]) Comment:Testing performed by : [facility], [address] [place] [address], [address] AST 19 10 - 45 Units/L [facility]) Comment:Testing performed by : [address], [address] Blood 11/11/2024 8:11 AM CDT 11/11/2024 4:51 PM CDT us Kingsley Power MD LAB BLOOD ORDERABLES Angélica saunders Result [facility] Department of Laboratories [place], [place] [id number] * Pap, reflex HPV (09/19/2023 11:00 AM CDT) [facility]IN[facility] INFORMATION: [facility] Comment: Routine exam SCREENING LMP [facility] Cooper Comment:09/07/23 Previous Pap [facility] Comment:NONE GIVEN Prev. Bx [facility] Comment:NONE GIVEN SOURCE: Regina Cooper Comment:Cervix, Endocervix Pap, specimen adequacy Regina Cooper Comment: Satisfactory for evaluation. Endocervical/transformation zone component present. HPV interp Regina Cooper Comment: Cytology Results: Negative for intraepithelial lesion or malignancy. COMMENTS Regina Cooper Comment: This Pap test has been evaluated with computer assisted technology. Home Planning Consultant Salesperson Koby Cuello Comment: KMS CT(ASCP) CT Screening location: [place] [address] [address] Torrez [address] Comment Regina Cooper Comment: EXPLANATORY NOTE: The Pap is a screening test for cervical cancer. It is not a diagnostic test and is subject to false negative and false positive results. It is most reliable when a satisfactory sample, regularly obtained, is submitted with relevant clinical findings and history, and when the Pap result is evaluated along with historic and current clinical information. Thin prep 09/19/2023 11:0 0 AM CDT 09/20/2023 2:36 AM CDT us Roxy Krause NP LAB CYTOLOGY ORDERABLES Final Re sult [place] [address] [place] [address] from Last 3 Months or Most Recently Relevant to Health Maintenance Insurance [employer] OPEN ACCESS [employer] Care Teams Contact Finger Assembler Relationship Specialty Start Date End Date Kingsley Power MD [facility] [address] PCP - General Family Medicine 09/02/20 Aubree June PA [address] [place] [address] [place] [address] Orthopedic Surgery 11/02/23
--- OUTSIDE RECORDS SUMMARY | 2024-12-31 19:16 | XMS_ITS | Clinical Summary ---
Author Organization [facility] [employer] Address [address] [place] [address] Care Team Providers Care Flower Shop Laborer/Designer Name Role Phone Kingsley Power MD Primary Care Provider [phone] Source Comments [facility],non-owned Affiliates and Associated Physician Practices is amultiple site organization consisting of ambulatory clinics and hospital sitesin [place], [place], [place] and [place]. This disclosure is being madepursuant to the Care Everywhere program and may not contain all information available regarding this patient. Last updated 18.[facility] [employer] Allergies Active Allergy Reactions Criticality Noted Date Comments Adhesive Sensitivity Rash Medium 09/04/2018 Penicillins Urticaria Medium 04/10/2016 Sulfa Drugs Urticaria Medium 04/10/2016 Medications * Be aware that medications may not be up to date on this document. Alwaysverify current medications with the patient. etonogestrel (NEXPLANON) 68 MG implant 68 mg by Subdermal route as directed Active Social History Tobacco Use Types Packs/Day Years Used Date Smoking Tobacco: Never Smokeless Tobacco: Never Alcohol Use Standard Drinks/Week Comments Yes 0 (1 standard drink = 0.6 oz pur e alcohol) Comments No Sex and Gender Information Value Date Recorded Sex Assigned at Not on file Legal Sex Female 10:57 AM CDT Gender Identity Not on file Sexual Orientation Not on file Last Filed Vital Signs Vital Sign Reading Time Taken Comments Blood Pressure 126/82 02/19/2021 8:45 AM CDT Pulse 65 02/19/2021 8:48 AM CDT Temperature 36.3 C (97.4 F) 02/19/2021 7:32 AM CDT Respiratory Rate 20 02/19/2021 8:48 AM CDT Oxygen Saturation 100% 02/19/2021 8:48 AM CDT Inhaled Oxygen Concentration - - Weight 59 kg (130 lb) 02/19/2021 7:37 AM CDT Height 160 cm (5' 3) 02/19/2021 7:32 AM CDT Body Mass Index 23.03 02/19/2021 7:32 AM CDT Plan of Treatment Health Maintenance Due Date Last Done Comments HIV SCREENING 2009 HEPATITIS C SCREENING 11/28/2012 DTAP/TDAP/TD VACCINES (1 - Tdap) 2013 HEPATITIS B VACCINE (1 of 3 - 19+ 3-dose series) 2013 HPV VACCINE (1 - 3-dose SCDM series) 2021 COVID-19 VACCINE (1 - season) 2024 DEPRESSION SCREENING 06/12/2024 INFLUENZA VACCINE (#1) 2025 , 05/04/2021, 09/02/2020, Additional history exists ZOSTER VACCINE (1 of 2) 2044 HIB VACCINE Aged Out No longer eligi ble based on patient's age to complete this topic MENINGOCOCCAL (Group B) VACCINE SHARED DECISION-MAKING Aged Out No longer eligible based on patient's age to complete this topic MENINGOCOCCAL GROUPS A/C/Y/W VACCINE Aged Out No longer eligible based on patient's age to complete this topic PNEUMOCOCCAL VACCINE Aged Out No long er eligible based on patient's age to complete this topic Insurance [address] [address] [address] CARE Care Teams Flower Shop Laborer/Designer Relationship Specialty Start Date End Date Kingsley Power MD [address] [place] [address] PCP - General Family Medicine 02/19/21
--- OUTSIDE RECORDS SUMMARY | 2024-12-31 19:16 | XMS_ITS | Clinical Summary ---
Author Organization [facility] Address [address] [place] [address] Phone Care Team Providers Care Blue Print Control Clerk Name Role Phone Kingsley Power MD Primary Care Provider [phone] Allergies Active Allergy Reactions Criticality Noted Date Comments Penicillins Hives,Swelling High 04/10/2016 Reaction: Hives, , Reaction: Hives, , Sulfa Antibiotics Rash Low 06/07/2018 Medications No known medications Active Problems No known active problems Immunizations Immunization Administration Dates Next Due Influenza Vaccine, Quadrivalent, PF 05/04/2021,0 09/02/2020 Social History Tobacco Use Types Packs/Day Years Used Date Smoking Tobacco: Never Smokeless Tobacco: Never Comments No Sex and Gender Information Value Date Recorded Sex Assigned at Not on file Legal Sex Female 12:15 AM CDT Gender Identity Not on file Sexual Orientation Not on file Last Filed Vital Signs Vital Sign Reading Time Taken Comments Blood Pressure 126/60 07/17/2021 11:15 AM NETWORK CONTROL TECHNICIAN Pulse 89 07/17/2021 11:15 AM NETWORK CONTROL TECHNICIAN Temperature 36.6 C (97.9 F) 07/17/2021 11:15 AM NETWORK CONTROL TECHNICIAN Respiratory Rate 16 07/17/2021 11:15 AM NETWORK CONTROL TECHNICIAN Oxygen Saturation 98% 07/17/2021 11:15 AM NETWORK CONTROL TECHNICIAN Inhaled Oxygen Concentration - - Weight 61.2 kg (135 lb) 07/17/2021 11:15 AM NETWORK CONTROL TECHNICIAN Height - - Body Mass Index - - Plan of Treatment Health Maintenance Due Date Last Done Comments Hepatitis C Virus (HCV) Screening 1994 Human Papillomavirus (HPV) Immunization (1 - 3-dose series) 2009 Pap Smear 12/04/2015 SARS-COV-2 Immunization ( season) 2024 12/17/2020, 11/17/2020 Cervical Cancer Screening (CCS) 2024 HPV/Cotest 2024 Influenza Immunization (#1) 2025 11/2 08/2020, 09/02/2020, 03/12/2019, Additional history exists Respiratory Syncytial Virus (RSV) Immunization (Adult) (1 - 1-dose 75+ series) 2069 Hepatitis B Immunization Completed 996, 02/25/1995, 02/15/1995, Additional history exists DTaP/Tdap/Td Immunization Discontinued 2020, 01/13/2000, 12/28/1995, Additional history exists TdaP Immunization Completed 09/02/2020 Meningococcal Immunization (ACWY) Aged Out No longer eligible based on patient's age to complete this topic Pneumococcal Immunization Combined Aged Out No longer eligible based on patient's age to complete this topic Rotavirus Immunization Aged Out No lo nger eligible based on patient's age to complete this topic Insurance CIG Care Teams Blue Print Control Clerk Relationship Specialty Start Date End Date Kingsley Power MD [address] [place] [address] PCP - General Family Medicine 07/17/21
--- OUTSIDE RECORDS SUMMARY | 2024-12-31 19:16 | XMS_ITS | Encounter Summary ---
Author Organization [facility] Address [address] [place] [address] Care Team Providers Care Extrusion Bender Name Role Phone Kingsley Power MD Primary Care Provider [phone] Aubree June Unavailable Encounter Details Date Type Department Care Team (Late st Contact Info) Description 11/12/2024 Results Follow-Up [facility] Primary Care at [address] [address] Kingsley Power MD [address] [place] [address] Hepatitis C antibody Blood, Comprehensive metabolic panel, CBC with auto differential, Additional followed-up results: 3 Social History Tobacco Use Types Packs/Day Years [...] on file Legal Sex Female 3:52 AM DIRT SUPERVISOR Gender Identity Female 03/19/2024 10:38 AM CDT Sexual Orientation Straight 12/22/2020 7: 52 AM CDT documented as of this encounter Plan of Treatment Not on file documented as of this encounter Visit Diagnoses Not on filedocumented in this encounter Care Teams Extrusion Bender Relationship Specialty Start Date End Date Kingsley Power MD [address] [place] [address] PCP - General Family Medicine 09/02/20 Aubree June PA [address] [place] [address] [place] [address] Orthopedic Surgery 11/02/23 documented as of this encounter
--- OUTSIDE RECORDS SUMMARY | 2024-12-31 19:16 | XMS_ITS | Continuity of Care Document ---
Author Organization [facility] Address [address] [place] [id number] Phone Care Team Providers Care Rice Drier Name Role Phone Myles Ayers PT Unavailable Unavailable Procedures Procedure Date Therapeutic Activities Neuromuscular Re-Ed Therapeutic Exercise Manual Therapy Hot or Cold Pack Progress Note Therapeutic Activities Neuromuscular Re-Ed Therapeutic Exercise Manual Therapy Hot or Cold Pack Therapeutic Activities Neuromuscular Re-Ed Therapeutic Exercise Manual Therapy Therapeutic Activities Neuromuscular Re-Ed Therapeutic Exercise Manual Therapy Therapeutic Activities Neuromuscular Re-Ed Therapeutic Exercise Manual Therapy Hot or Cold Pack Therapeutic Activities Neuromuscular Re-Ed Therapeutic Exercise Manual Therapy Therapeutic Activities Neuromuscular Re-Ed Therapeutic Exercise Manual Therapy Hot or Cold Pack Therapeutic Activities Neuromuscular Re-Ed Therapeutic Exercise Manual Therapy Hot or Cold Pack PT Re-evaluation Therapeutic Activities Neuromuscular Re-Ed Therapeutic Exercise Manual Therapy Therapeutic Activities Neuromuscular Re-Ed Therapeutic Exercise Manual Therapy Hot or Cold Pack Therapeutic Activities Neuromuscular Re-Ed Therapeutic Exercise Manual Therapy Hot or Cold Pack Therapeutic Activities Neuromuscular Re-Ed Therapeutic Exercise Manual Therapy Hot or Cold Pack Therapeutic Activities Neuromuscular Re-Ed Therapeutic Exercise Manual Therapy Hot or Cold Pack Therapeutic Activities Neuromuscular Re-Ed Therapeutic Exercise Manual Therapy Progress Note Therapeutic Activities Neuromuscular Re-Ed Therapeutic Exercise Manual Therapy Hot or Cold Pack Therapeutic Activities Neuromuscular Re-Ed Therapeutic Exercise Manual Therapy Hot or Cold Pack Therapeutic Activities Neuromuscular Re-Ed Therapeutic Exercise Manual Therapy Hot or Cold Pack Therapeutic Activities Neuromuscular Re-Ed Therapeutic Exercise Hot or Cold Pack Manual Therapy Therapeutic Activities Neuromuscular Re-Ed Therapeutic Exercise Manual Therapy Therapeutic Activities Neuromuscular Re-Ed Therapeutic Exercise Manual Therapy Hot or Cold Pack Therapeutic Activities Neuromuscular Re-Ed Therapeutic Exercise Manual Therapy Therapeutic Activities Neuromuscular Re-Ed Therapeutic Exercise Manual Therapy Progress Note Therapeutic Activities Neuromuscular Re-Ed Therapeutic Exercise Hot or Cold Pack Manual Therapy Therapeutic Activities Neuromuscular Re-Ed Manual Therapy Therapeutic Exercise Hot or Cold Pack Therapeutic Activities Neuromuscular Re-Ed Feb- Therapeutic Exercise Manual Therapy Hot or Cold Pack Therapeutic Activities Neuromuscular Re-Ed Feb- Therapeutic Exercise Feb- Hot or Cold Pack Therapeutic Activities Neuromuscular Re-Ed Feb- Therapeutic Exercise Manual Therapy Hot or Cold Pack Therapeutic Activities Feb- Neuromuscular Re-Ed Feb- Therapeutic Exercise Feb- Manual Therapy Hot or Cold Pack Therapeutic Activities Neuromuscular Re-Ed Feb- Therapeutic Exercise Feb- Manual Therapy Hot or Cold Pack Therapeutic Activities Neuromuscular Re-Ed Feb- Therapeutic Exercise Feb- Manual Therapy Hot or Cold Pack Progress Note Therapeutic Activities Neuromuscular Re-Ed Feb- Therapeutic Exercise Feb- Manual Therapy Hot or Cold Pack Therapeutic Activities Neuromuscular Re-Ed Therapeutic Exercise Hot or Cold Pack Manual Therapy Therapeutic Activities Neuromuscular Re-Ed Manual Therapy Therapeutic Exercise Hot or Cold Pack Therapeutic Activities Neuromuscular Re-Ed Therapeutic Exercise Manual Therapy Hot or Cold Pack Therapeutic Activities Neuromuscular Re-Ed Therapeutic Exercise Manual Therapy Hot or Cold Pack Therapeutic Activities Neuromuscular Re-Ed Therapeutic Exercise Manual Therapy Hot or Cold Pack Therapeutic Activities Neuromuscular Re-Ed Therapeutic Exercise Manual Therapy Hot or Cold Pack Therapeutic Activities Neuromuscular Re-Ed Therapeutic Exercise Manual Therapy Hot or Cold Pack Therapeutic Activities Neuromuscular Re-Ed Therapeutic Exercise Manual Therapy Hot or Cold Pack PT Evaluation Moderate Complexity Therapeutic Activities Neuromuscular Re-Ed Therapeutic Exercise Advance Directives Directive Yes / No Effective Date File Name No Information Encounters Encounter Description Practice Location Reason(s) For Visit Diagnoses Date Provider Providers Copied on Encounter [facility] [employer], [place], [place], [id number], tel:[phone] Prashant No Information Armen Bueno. . [facility] [employer], [place], [place], [id number], tel:[phone] Prashant No Information Surjit Jackson. [address] [facility], [address], [place], [place], [facility], . tel:[phone] Referring Provider: Malaika Lovelace [facility] [address], [place], [address]. tel:[phone] [place], [place] [address] [facility] [address] [place] [address], [id number], [place] tel:[phone] Holley No Information Sravanthi Kingsley. . Referring Provider: Malaika Lovelace [facility] [address], [place], [address]. tel:[phone] [place], [place] [address] [address] [facility], [place], [place], [id number], [place] tel:[phone] Holley No Information Kong Jamesi. . Referring Provider: Malaika [address], [place], [address]. tel:[phone] [place], [place] [address] [place] [address] [place] [address], [id number], [place] tel:[phone] Prashant No Information Kong Stillfani. . Referring Provider: Malaika [address], [place], [address]. tel:[phone] [place], [place] [address] [address], [place], [place], [id number], [place] tel:[phone] Prashant No Information Surjit Jackson. [address] [facility], [address], [place], [address], [place]. tel:[phone] Referring Provider: Malaika Lo[address], [place], [address]. tel:[phone] [place], [place] [address] [facility] [address] [place] [address], [id number], [place] tel:[phone] Prashant No Information Surjit Jackson. [address] [facility], [address], [place], [place], [facility], . tel:[phone] Referring Provider: Malaika [address], [place], [address]. tel:[phone] [facility], [id number], tel:[phone] Prashant No Information Surjit Jackson. [address] [facility], [address], [place], [place], [facility], . tel:[phone] Referring Provider: Malaika Lo[address], [place], [address]. [phone] [place], [place] [address] [address], [id number], tel:[phone] Holley No Information Surjit Jackson. [address] [facility], [address], [place], [place], [facility], . tel:[phone] Referring Provider: Malaika Lo[address], [place], [address]. [phone] [facility] [facility] [address] [place] [address], [id number], tel:[phone] Holley No Information Armen Bueno. . Referring Provider: Malaika Lo[address], [place], [address]. tel:[phone] [facility] [place] [address], [id number], tel:[phone] Prashant No Information Sravantih Kingsley. . Referring Provider: Malaika [address], [place], [address]. tel:[phone] [place], [place] [address] [address], [place], [place], [id number], [place] tel:[phone] Holley No Information Armen Bueno. . Referring Provider: Malaika Lovelace [facility] [address], [place], [address]. tel:[phone] [facility], [place], [place], [id number], [place] tel:[phone] Prashant No Information Sravanthi Kingsley. . Referring Provider: Malaika Lovelace [facility] [address], [place], [address]. tel:[phone] [place], [place] [id number] [place] [address] [place] [address], [id number], [place] [phone] Prashant No Information Surjit Jackson. [address] [place] [address], [address], [place], [facility], . tel:[phone] Referring Provider: Malaika Lovelace [facility] [address], [place], [address]. tel:[phone] [place], [place] [id number] [facility] [address], [id number], [place] [phone] Prashant No Information Kong Cha. . Referring Provider: Malaika Lovelace [facility] [address], [place], [address]. tel:[phone] [place], [place] [address] [address], [place], [place], [id number], [place] tel:[phone] Holley No Information Armen Bueno. . Referring Provider: Malaika Lo[address], [place], [address]. tel:[phone] [facility] [facility] [address], [id number], [place] tel:[phone] Holley No Information Surjit Jackson. [address] [facility], [address] tel:[phone] Referring Provider: Malaika Lovelace [facility] [address], [place], [address]. tel:[phone] [place], [place] [address] [facility], [id number], [place] tel:[phone] Prashant No Information Garrels Teetee. . Referring Provider: Malaika [address], [place], [address]. tel:[phone] [place], [place] [address] [address] [facility], [place], [place], [id number], tel:[phone] Prashant No Information Surjit Jackson. [address] [place] [address], [address], [place], [facility], . tel:[phone] Referring Provider: Malaika Lovelace [facility] [address], [place], [address]. tel:[phone] [place] [address] [place] [address] [place] [address], [id number], [place] tel:[phone] Prashant No Information Kong Cha. . Referring Provider: Malaika Lovelace [facility] [address], [place], [address]. tel:[phone] [place], [place] [address] [address], [place], [id number], [place] tel:[phone] Holley No Information Garrels Teetee. . Referring Provider: Malaika Lo[address], [place], [address]. tel:[phone] [place], [place] [address] [address], [place], [place], [id number], [place] tel:[phone] Prashant No Information Scheldt Starla. . Referring Provider: Malaika Lo[address] Dr, [place], [address]. tel:[phone] [place], [place] [address] [facility], [place], [place], [id number], [place] tel:[phone] Prashant No Information Scheldt Starla. . Referring Provider: Malaika Lo[address] Dr, [place], [address]. tel:[phone] [place], [place] [id number] [facility], [place], [place], [id number], tel:[phone] Prashant No Information Sravanthi Kingsley. . Referring Provider: Malaika Lo[address], [place], [address]. tel:[phone] [place], [place] [address] [address], [place], [id number], [place] tel:[phone] Prashant No Information Surjit Jackson. [address] [place] [address], [address], [facility], . tel:[phone] Referring Provider: Malaika Lo[address] Dr, [place], [address]. tel:[phone] [place], [place] [address] [facility] [address], [id number], [place] tel:[phone] Holley No Information Surjit Jackson. [address] [place] [address], [address], [place], [facility], . tel:[phone] Referring Provider: Malaika [address], [place], [address]. tel:[phone] [place], [place] [address] [address], [id number], [place] tel:[phone] Prashant No Information Surjit Jackson. [address] [facility], [address], [place], [place], [facility], [place]. tel:[phone] Referring Provider: Malaika Lo[address] Dr, [place], [address]. tel:[phone] [place] [address], [address], [id number], [place] tel:[phone] Prashant No Information Armen Bueno. . Referring Provider: Malaika Lo[address], [place], [address]. tel:[phone] [place] [address], [address], [id number], [place] tel:[phone] Prashant No Information Surjit Jackson. [address] [place] [address], [address], [place], [place], [facility], [place]. tel:[phone] Referring Provider: Malaika Lo[address], [place], [address]. tel:[phone] [place] [address], [id number], [place] tel:[phone] Prashant No Information Sravanthi Kingsley. . Referring Provider: Malaika [address], [place], [address]. tel:[phone] [facility], [id number], [place] tel:[phone] Prashant No Information Surjit Jackson. [address] [place] [address], [address], [place], [place], [facility], [place]. tel:[phone] Referring Provider: Malaika Lo[address] Dr, [place], [address]. tel:[phone] [facility], [address], [id number], [place] tel:[phone] Prashant No Information Armen Bueno. . Referring Provider: Malaika Lovelace [facility] [address], [place], [address]. [phone] [facility], [id number], [place] tel:[phone] Prashant No Information Armen Bueno. . Referring Provider: Malaika Lovelace [facility] [address], [place], [address]. tel:[phone] [place], [place] [address] [facility] [address] [place] [address], [id number], [place] tel:[phone] Prashant No Information Surjit Jackson. [address] [facility], [address] [address], . tel:[phone] Referring Provider: Malaika Lovelace [facility] [address], [place], [address]. tel:[phone] [facility], [id number], [place] tel:[phone] Holley No Information Sravanthi Kingsley. . Referring Provider: Malaika Lovelace [facility] [address], [place], [address]. tel:[phone] [facility], [id number], [place] tel:[phone] Prashant No Information Surjit Jackson. [address] [facility], [address] [address], . tel:[phone] Referring Provider: Malaika Lo[address] Dr, [place], [address]. tel:[phone] [facility], [place], [id number], [place] tel:[phone] Prashant No Information Surjit Jackson. [address] [place] [address], [address], [place], [facility], . tel:[phone] Referring Provider: Aubree June, Malaika [facility] [address], [place], [address]. tel:[phone] [place] [address], [address] [place], [place] [address]uityumiko [address] [place] [address], [id number], [place] tel:[phone] Prashant No Information Surjit Jackson. [address] [place] [address], [address], [place], [facility], . tel:[phone] Referring Provider: Malaika Lovelace [facility] [address], [place], [address]. tel:[phone] [place] [address], [address] [place], [place] [address]yumiko [address] [place] [address], [id number], [place] tel:[phone] Rpashant No Information Surjit Jackson. [address] [place] [address], [address], [place], [facility], . tel:[phone] Referring Provider: Malaika Lovelace [facility] [address], [place], [address]. tel:[phone] [place], [place] [address] [facility] [address], [place], [id number], [place] tel:[phone] Holley No Information Sravanthi Aponte . Referring Provider: Malaika Lovelace [facility] [address], [place], [address]. tel:[phone] [facility], [place], [id number], [place] tel:[phone] Holley No Information Sravanthi Kingsley. . Referring Provider: Malaika Lovelace [facility] [address], [place], [address]. tel:[phone] Family History Family Member Type Diagnosis Age At Onset No Information Payers Payer name Insurance type Covered democrat ID Authoriza tion(s) [facility] CI [id number] Social History Type Description Quantity Date Captured Comments Sex Female Smoking Status No Information Chief Complaint And Reason For Visit No Information Reason For Referral Reason For Referral No Information History Of Present Illness Encounter Date Complaint History Of Prese nt Illness No Information Functional Status Date Functional Assessmen t No Information Instructions Date Instruction Additional Infor mation No Information Assessments Type Assessment Date No Information Patient Care Teams Name Effective Dates (start - stop) Status Members No Information
[2024-12-31 20:26] VITALS: BP 127/90; PULSE 68; RESP 18; O2SAT 99
== END 2024-12-31 20:27 | disposition home or self-care (01) ==
PROVIDERS: Registered Nurse; Emergency Provider Physician Assistant; PCP Hospitalist
DX: F41.9 Anxiety disorder, unspecified (principal)
CPT/HCPCS: 36415; 80053; 80307; 81001; 81025; 82077; 84443; 85025; 99283